=== PATIENT | female | born 1995 | race Caucasian/White ===

== ENCOUNTER 2016-11-17 21:13 | Emergency (ER) | payer MEDICAID ==
--- NOTE | 2016-11-17 21:37 | ED Physician Chart ---
Chief Complaint/HPI - Patient Information Date Seen:: 11/17/16 Time Seen:: 21:32 Chief Complaint:: abd p History of Present Illness:: pt had laproscopic sx 1 wk ago for acute appy. began feeling sev pain and nausea in abd 1 hr ago. feels dizzy now. pain was very sharp ...some persists. no fever. sx was at [facility]... pt has no other [facility]. pt is taking levaquin 250mg/day for post op....also has ty#3 rx for pain. Allergies:: Allergies Allergy/AdvReac Type Severity Reaction Status Date / Time No Known Allergies Allergy Verified 11/17/16 21:32 Vitals:: Vital Signs - 8 hr 11/17/16 21:20 Temp 98.2 F HR 104 RR 16 BP 114/73 O2 Sat % 98 Historian:: Patient, Family Member (m,d) Review of Systems - Review of Systems General/Constitutional: No fever, No chills, No weight loss, No weakness, No diaphoresis, No edema, No loss of appetite Skin: No skin lesions, No rash, No bruising Head: No headache, No light-headedness Eyes: No loss of vision, No pain, No diplopia ENT: No earache, No nasal drainage, No sore throat, No tinnitus Neck: No neck pain, No swelling, No thyromegaly, No stiffness, No mass noted Cardio Vascular: No chest pain, No palpitations, No PND, No orthopnea, No edema Pulmonary: No SOB, No cough, No sputum, No wheezing GI: Nausea, No vomiting, No diarrhea, Pain, No melena, No hematochezia, No constipation, No hematemesis G/U: No dysuria, No frequency, No hematuria Musculoskeletal: No bone or joint pain, No back pain, No muscle pain Endocrine: No polyuria, No polydipsia Psychiatric: No prior psych history, No depression, No anxiety, No suicidal ideation Hematopoietic: No bruising, No lymphadenopathy Allergic/Immuno: No urticaria, No angioedema Neurological: No syncope, No focal symptoms, No weakness, No paresthesia, No headache, No seizure, No dizziness, No confusion, No vertigo Past Medical History - Past Medical History Past Medical History: No significant medical hx Social History: Non Smoker, Lives With Parents Medication: Reviewed Family Medical History - Family Member Mother Other Medical History: patient denies family medical history Physical Exam - Physical Examination General/Constitutional: Awake, Well-developed, well-nourished, Alert, No distress, GCS 15, Non-toxic appearing, Ambulatory Other Gen/Cons comments:: obese Head: Atraumatic Eyes: Lids, conjuctiva normal, PERRL, EOMI Skin: Nl inspection, No rash, No skin lesions, No ecchymosis, Well hydrated, No lymphadenopathy ENMT: External ears, nose nl, Nasal exam nl, Lips, teeth, gums nl Neck: Nontender, Full ROM w/o pain, No JVD, No nuchal rigidity, No bruit, No mass, No stridor Respiratory: Nl effort/Exclusion, Clear to Auscultation, No Wheeze/Rhonchi/Rales Cardio Vascular: RRR, No murmur, gallop, rubs, NL S1 S2 GI: No organomegaly, No hernia, Normal BS's, Nondistended, No mass/bruits, No McBurney tenderness Other GI comments:: vague tndrness. no rebound tndr. pos nabs. 3 x small laproscopic sx scars well healing wo sign of infection. : No CVA tenderness Extremities: No tenderness or effusion, Full ROM, normal strength in all extremities, No edema, Normal digits & nails Neuro/Psych: Alert/oriented, DTR's symmetric, Normal sensory exam, Normal motor strength, Judgement/insight normal, Mood normal, Normal gait, No focal deficits Misc: normal gait, Normal back, No paraspinal tenderness Labs/Radiology/EKG Results - Lab Results Results: Laboratory Tests 11/17/16 11/17/16 11/17/16 21:35 21:35 21:45 WBC 11.7 H RBC 5.12 H Hgb 14.5 Hct 43.4 MCV 84.7 MCH 28.4 MCHC Differential 33.5 RDW 11.7 Plt Count 177 MPV 10.2 Neutrophils % 72.4 Lymphocytes % 21.3 Monocytes % 3.4 Eosinophils % 2.6 Basophils % 0.3 Sodium Potassium Chloride Carbon Dioxide Anion Gap BUN Creatinine Est GFR ( Amer) Est GFR (Non-Af Amer) BUN/Creatinine Ratio Glucose Whole Bld Lactic Acid Calcium Total Bilirubin AST ALT Alkaline Phosphatase Total Protein Albumin Globulin Albumin/Globulin Ratio Urine Source CLEAN C Urine Color YELLOW Urine Clarity CLEAR Urine pH 6.0 Ur Specific [place] 1.025 Urine Protein NEGATIVE Urine Glucose (UA) NEGATIVE Urine Ketones NEGATIVE Urine Blood NEGATIVE Urine Nitrate NEGATIVE Urine Bilirubin NEGATIVE Urine Urobilinogen 0.2 Ur Leukocyte Esterase NEGATIVE Urine RBC NONE SEEN Urine WBC NONE SEEN Ur Epithelial Cells NONE SEEN Urine Bacteria NONE SEEN Urine Test NEGATIVE 11/17/16 11/17/16 21:45 21:45 WBC RBC Hgb Hct MCV MCH MCHC Differential RDW Plt Count MPV Neutrophils % Lymphocytes % Monocytes % Eosinophils % Basophils % Sodium 137 Potassium 4.0 Chloride 104 Carbon Dioxide 26.3 Anion Gap 10.7 BUN 13 Creatinine 0.8 Est GFR ( Amer) > 60.0 Est GFR (Non-Af Amer) > 60.0 BUN/Creatinine Ratio 16.3 Glucose 96 Whole Bld Lactic Acid 1.26 Calcium 9.9 Total Bilirubin 0.4 AST 20 ALT 21 Alkaline Phosphatase 57 Total Protein 8.0 Albumin 4.6 Globulin 3.4 Albumin/Globulin Ratio 1.4 Urine Source Urine Color Urine Clarity Urine pH Ur Specific [place] Urine Protein Urine Glucose (UA) Urine Ketones Urine Blood Urine Nitrate Urine Bilirubin Urine Urobilinogen Ur Leukocyte Esterase Urine RBC Urine WBC Ur Epithelial Cells Urine Bacteria Urine Test - Radiology Results Results: ct abd/p- no hydro, small amt free fluid and mild infl changes rlq, s/p appy sx , small free air rlq, iud in place. no abscess. ED Septic Shock - . Is Septic Shock (SBP<90, OR Lactate>4 mmol\L) present?: No - <6hrs of presentation: Vital Signs: Vital Signs - 8 hr 11/17/16 21:20 Temp 98.2 F HR 104 RR 16 BP 114/73 O2 Sat % 98 Reassessment (Disposition) - Reassessment Reassessment:: pt says feels well...feels ok for dc. has a apt for [place] [facility]. advised to use her reg pain meds and return if worse pain or severe nausea/ vomiting/dehydration or fever. Reassessment Condition:: Improved - Diagnosis Diagnosis:: 1 post-op pain 1 week s/p appy sx - Aftercare/Follow up Instructions Aftercare/Follow-Up Instructions:: Counseled pt & family regarding lab results/ diagnosis & need follow up - Patient Disposition Discharge/Transfer:: Home Condition at Disposition:: Improved
[2016-11-17] MEDS: Sodium Chloride 0.9% 1,000 ML IV ONE (21:46)
[2016-11-17 21:52] LABS: % BASOPHILS 0.3 % (0.0-2.0); % EOSINOPHILS 2.6 % (0.0-5.0); % LYMPHOCYTES 21.3 % (20.0-50.0); % MONOCYTES 3.4 % (2.0-10.0); % NEUTROPHILS 72.4 % (40.0-80.0); HEMATOCRIT 43.4 % (35.0-45.0); HEMOGLOBIN 14.5 gm/dL (11.7-15.5); MEAN CELL VOLUME 84.7 fl (81-100); MEAN CORPUSCULAR HEMOGLOBIN 28.4 pg (27.0-31.0); MEAN CORPUSCULAR HGB CONC 33.5 pg (28.0-36.0); MEAN PLATELET VOLUME 10.2 fl; NEUTROPHILE ABSOLUTE 8.5 Th/cmm (1.8-8.0); PLATELET COUNT 177 Th/cmm (150-400); RED BLOOD COUNT 5.12 Mil/cmm (3.80-5.10); RED CELL DISTRIBUTION WIDTH 11.7 % (11.5-20.0); WHITE BLOOD COUNT 11.7 Th/cmm (4.8-10.8)
[2016-11-17] MEDS ORDERED: Morphine Sulfate 4 mg/mL 1mL Syr ONE (22:02)
[2016-11-17 22:10] LABS: ALB/GLOB RATIO 1.4 (1.0-1.8); ALKALINE PHOSPHATASE 57 U/L (34-104); ANION GAP 10.7 (7.0-16.0); BILIRUBIN,TOTAL 0.4 mg/dL (0.3-1.0); BUN - UREA NITROGEN 13 mg/dL (7-25); BUN/CREATININE RATIO 16.3; CALCIUM SERUM 9.9 mg/dL (8.6-10.3); CARBON DIOXIDE 26.3 mEq/L (21.0-31.0); CHLORIDE 104 mEq/L (98-107); CREATININE - SERUM 0.8 mg/dL (0.6-1.2); GLUCOSE 96 mg/dL (70-105); SGOT 20 U/L (13-39); SGPT/ALT 21 U/L (7-52); SODIUM SERUM 137 mEq/L (136-145)
[2016-11-17 22:12] LABS: URINE BILIRUBIN NEGATIVE (NEGATIVE); URINE BLOOD NEGATIVE (NEGATIVE); URINE COLOR YELLOW; URINE GLUCOSE (UA) NEGATIVE (NEGATIVE); URINE KETONE NEGATIVE (NEGATIVE)
[2016-11-17 22:13] LABS: URINE BACTERIA NONE SEEN /hpf (NONE SEEN); URINE EPITHELIAL CELLS NONE SEEN /lpf (FEW); URINE PROTEIN NEGATIVE (NEGATIVE); URINE RBC NONE SEEN /hpf (0-5); URINE UROBILINOGEN 0.2 E.U./dL (0.2 - 1.0); URINE WBC NONE SEEN /hpf (0-5)
--- NOTE | 2016-11-18 09:25 | Diagnostic Imaging Report ---
CT abdomen and pelvis without intravenous contrast Indication: Severe abdominal pain. Status post appendectomy one week Comparison: None, Technique: Axial images were obtained from the lung bases to the bilateral proximal femurs without IV contrast. Coronal reconstructions were made. total DLP: 497, CTDI10.3 FINDINGS: Hypoventilatory changes of the lung bases are noted. Assessment of solid organs is limited due to lack of IV contrast. No evidence of focal hepatic, splenic, pancreatic, or adrenal lesions. No evidence of hydronephrosis or focal renal lesions. An IUD is noted. There is moderate stool throughout the colon. The patient status post appendectomy with minimal inflammatory changes right lower quadrant. Moderate amount of free air is seen throughout the peritoneum. Additional air is seen throughout the anterior abdominal wall greatest on the left side. No evidence of free fluid. The osseous structures demonstrate no acute abnormalities. There may be mild scoliosis. IMPRESSION: Status post appendectomy with minimal inflammatory changes seen in the right lower quadrant. There is generalized moderate amount of scattered pockets of free air throughout the peritoneum. Additional pockets of free of gas are seen throughout the anterior abdominal wall greatest on the left side. Although findings may be related to surgical procedure, occult bowel perforation cannot be completely excluded. Clinical correlation and short-term follow-up is recommended. IUD. Follow results were administered to the referring team 11/18/2016 at 9:20 AM.
== END 2016-11-17 23:15 | disposition home or self-care (01) ==
LOC: ER 21:13
DX: G89.18 Other acute postprocedural pain (principal)
CPT/HCPCS: 36415-UA; 80053-TC; 81001-TC; 81025-TC; 83605; 85025-TC; 96374; 96375; J2405; J7030